=== PATIENT | female | born 1955 | race Caucasian/White ===

== ENCOUNTER → 2019-05-05 20:15 | Outpatient (CLI) | payer MEDICARE, SELFPAY ==
[2019-04-18 13:56] VITALS: BMI 32.3
== END ==
PROVIDERS: Family Provider Internal Medicine; PCP Internal Medicine; Referring Provider Internal Medicine Cardiovascular Disease; Visit Provider Internal Medicine Cardiovascular Disease
DX: G47.10 Hypersomnia, unspecified (principal); R06.83 Snoring; I10 Essential (primary) hypertension
CPT/HCPCS: 95810

== ENCOUNTER → 2019-05-23 12:58 | Outpatient (CLI) | payer MEDICARE, SELFPAY ==
[2019-04-18 13:56] VITALS: BMI 32.3
[2019-05-18 08:08] VITALS: BMI 32.3
--- NOTE | 2019-05-23 12:59 | CDU_ITS ---
Reason For Study: bruit Rt. Velocities/BP Lt. Velocities/BP Prox CCA 89.1/10.8 cm/sec. Prox CCA 90.0/13.9 cm/sec. Mid CCA 78.6/8.2 cm/sec. Mid CCA 67.9/13.9 cm/sec. Dist CCA 76.0/13.4 cm/sec. Dist CCA 94.9/16.3 cm/sec. Prox ICA 152.1/31.4 cm/sec. Prox ICA 134.5/27.0 cm/sec. Mid ICA 117.8/18.6 cm/sec. Mid ICA 132.3/20.4 cm/sec. Dist ICA 85.2/20.0 cm/sec. Dist ICA 125.7/20.4 cm/sec. Rt. ICA/CCA = 1.9. Lt. ICA/CCA = 2.0. Prox ECA 87.8/5.6 cm/sec. Prox ECA 174.3/6.0 cm/sec. Rt. Vert. 27.7/7.8 cm/sec. Lt. Vert. 103.8/18.2 cm/sec. Right Extracranial There is intimal thickening but no significant atherosclerotic plaque noted in the right common carotid artery. There is heterogeneous, irregular atherosclerotic plaque noted in the right internal carotid artery. There is intimal thickening but no significant atherosclerotic plaque noted in the right external carotid artery. Antegrade flow is noted in the right vertebral artery. Left Extracranial There is intimal thickening but no significant atherosclerotic plaque noted in the left common carotid artery. There is heterogeneous, irregular atherosclerotic plaque noted in the left internal carotid artery. There is homogeneous, smooth atherosclerotic plaque noted in the left external carotid artery. Antegrade flow is noted in the left vertebral artery. Procedure Carotid Duplex [id number]. The exam was diagnostic. Exam performed in department. Interpretation Summary Moderate (50-69%) stenosis right extracranial internal carotid. Moderate (50-69%) stenosis left extracranial internal carotid. Flow within the vertebral arteries is antegrade bilaterally. Ordering Physician: Delvin Bernard Performed By: Salvador Hahn RVT
--- NOTE | 2019-05-23 13:00 | ECHOD_ITS ---
Reason For Study: ABN EKG Procedure This was a 2D Doppler, Color Flow transthoracic echocardiogram. Exam performed in department. Left Ventricle Mild eccentric left ventricular hypertrophy. The estimated ejection fraction is 75 %. Stage 1 diastolic dysfunction. No regional wall motion abnormalities noted. Right Ventricle Normal size and thickness. Normal systolic function. Atria Normal left atrium. Normal right atrium. Normal atrial septum. Mitral Valve The mitral valve is structurally normal. No prolapse or stenosis seen. Tricuspid Valve Normal tricuspid valve. Trivial tricuspid valve insufficiency. Right ventricular systolic pressure estimated to be 34 mmHg. Aortic Valve Trisinus/trileaflet aortic valve. Normal aortic valve. Pulmonic Valve Normal pulmonic valve. Great Vessels Normal aortic root. Normal arch. Normal inferior vena cava. Inferior vena cava collapse with sniff. Pericardium/Pleural No pericardial effusion. MMode/2D Measurements & Calculations LVIDd: 3.8 cm IVSd: 1.3 cm LVOT diam: 1.9 cm LVIDs: 2.4 cm LVPWd: 0.75 cm LVOT area: 2.8 cm2 RVDd: 2.8 cm FS: 38.5 % Ao root diam: 2.5 cm LAV(MOD-bp): 42.5 ml LA A4 area: 15.6 cm2 LAV(MOD-bp) Indexed: 23.4 ml/m2 LAV(MOD-sp2): 48.7 ml LAV(MOD-sp4): 38.3 ml LA dimension(2D): 3.4 cm RA A4 area: 11.6 cm2 Time Measurements MV dec time: 0.34 sec Doppler Measurements & Calculations MV E max pb: 85.3 cm/sec Lat Peak E' Pb: 7.2 cm/sec Med Peak E' Pb: 5.7 cm/sec MV A max pb: 99.3 cm/sec E/E' lat: 11.9 E/E' med: 14.9 MV E/A: 0.86 Ao V2 max: 151.2 cm/sec LV V1 max: 107.5 cm/sec PA V2 max: 111.3 cm/sec Ao max P.2 mmHg LV V1 max P.6 mmHg AMAN(V,D): 2.0 cm2 TR max pb: 256.1 cm/sec TR max P.3 mmHg Interpretation Summary Mild eccentric left ventricular hypertrophy. The estimated ejection fraction is 75 %. Stage 1 diastolic dysfunction. Trivial tricuspid valve insufficiency. Right ventricular systolic pressure estimated to be 34 mmHg. Unable to elicit any dynamic LV gradient with Valsalva. There is no comparison study available. Ordering Physician: Marco Antonio^Delvin^^^ Referring Physician: Abigail Montoya Performed By: Nancy Lawson, MELINDA, RVT
== END ==
PROVIDERS: Family Provider Internal Medicine; PCP Internal Medicine; Referring Provider Internal Medicine Cardiovascular Disease; Visit Provider Internal Medicine Cardiovascular Disease
DX: Q24.8 Other specified congenital malformations of heart (principal); I77.9 Disorder of arteries and arterioles, unspecified; I73.9 Peripheral vascular disease, unspecified; I10 Essential (primary) hypertension; E78.5 Hyperlipidemia, unspecified; E11.9 Type 2 diabetes mellitus without complications; R09.89 Other specified symptoms and signs involving the circulatory and respiratory systems; R94.31 Abnormal electrocardiogram [ECG] [EKG]
CPT/HCPCS: 93306; 93880

== ENCOUNTER → 2019-06-02 09:02 | Outpatient (CLI) | payer MEDICARE, SELFPAY ==
[2019-05-18 08:08] VITALS: BMI 32.3
[2019-06-02 09:51] LABS: AST(SGOT) 35 U/L (15-37); Alanine Aminotransfer ALT/SGPT 53 U/L (13-56); Albumin, Serum 3.7 g/dL (3.2-5.0); Alkaline Phosphatase 172 U/L (45-117); Bilirubin, Direct 0.13 mg/dL (0.00-0.30); Cholesterol 196 mg/dL (200); Globulin 3.8 g/dL (2.2-4.2); High Density Lipoprotein 36 mg/dL; Protein, Total 7.5 g/dL (6.4-8.2); Triglycerides 132 mg/dL
[2019-06-02 09:52] LABS: Very Low Density Lipoprotein 26 mg/dL (5-40)
== END ==
PROVIDERS: Family Provider Internal Medicine; PCP Internal Medicine; Referring Provider Internal Medicine Cardiovascular Disease; Visit Provider Internal Medicine Cardiovascular Disease
DX: E78.5 Hyperlipidemia, unspecified (principal)
CPT/HCPCS: 36415; 80061; 80076

== ENCOUNTER → 2019-06-14 12:55 | Outpatient (CLI) | payer MEDICARE, SELFPAY ==
[2019-04-18 13:56] VITALS: BMI 32.3
[2019-05-18 08:08] VITALS: BMI 32.3
--- NOTE | 2019-06-14 14:57 | PFTCOMP_ITS ---
COMPLETE PULMONARY FUNCTION TEST INTERPRETATION Brief HPI: Patient is a 63 year old female, currently under the care of Dr. Bernard, who presents to [facility] for complete pulmonary function tests secondary to diagnosis of COPD. Respiratory therapist reports good effort and reproducible results. Interpretation: Forced expiration spirometry shows a moderate large airways obstructive ventilatory defect with an FEV1 of 73% predicted. There is no significant bronchodilator response by strict ATS criteria. Spirograms are of good quality and plateau slowly, indicating slowly emptying areas of the lungs. The respiratory flow volume loop shows decreased expiratory flow rates at all lung volumes consistent with airway obstruction. Lung volumes by body plethysmography show a normal total lung capacity at 3.89 L, 91% predicted. All other lung volumes are within normal limits. Diffusion capacity by carbon monoxide is decreased at 65% predicted. The airway resistance is elevated. No previous pulmonary function tests were available for review. Impression: Irreversible moderate large airways obstructive ventilatory defect with symmetric reduction in diffusing capacity.
== END ==
PROVIDERS: Family Provider Internal Medicine; PCP Internal Medicine; Referring Provider Internal Medicine Cardiovascular Disease; Visit Provider Internal Medicine Cardiovascular Disease
DX: R94.31 Abnormal electrocardiogram [ECG] [EKG] (principal); Q24.8 Other specified congenital malformations of heart; I73.9 Peripheral vascular disease, unspecified; I77.9 Disorder of arteries and arterioles, unspecified; I10 Essential (primary) hypertension; E78.5 Hyperlipidemia, unspecified; E11.9 Type 2 diabetes mellitus without complications; J44.9 Chronic obstructive pulmonary disease, unspecified; R06.09 Other forms of dyspnea; Z87.891 Personal history of nicotine dependence
CPT/HCPCS: 94060; 94726; 94729

== ENCOUNTER → 2019-06-29 09:16 | Outpatient (CLI) | payer MEDICARE, SELFPAY ==
[2019-04-18 13:56] VITALS: BMI 32.3
[2019-05-18 08:08] VITALS: BMI 32.3
--- NOTE | 2019-06-29 09:19 | STEWCON_ITS ---
Reason For Study: dyspnea, chest pain Stress Results Protocol: ZACH Maximum Predicted HR: 156 bpm Target HR: 133 bpm % Maximum Predicted HR: 85 % DurationHeart Rate Stage (mm:ss) (bpm) BP Dose Comment baseline 63 168/841.00 Stage one 3:00 95 168/70 mild dyspnea, mild martine leg pain Stage two 3:00 121 180/82 increased dyspnea and leg pain, mild chest burning Stage Three 0:30 133 / 1.00 Recovery 70 162/70 Stress Duration: 6:30 mm:ss Maximum Stress HR: 133 bpm Baseline Echocardiogram Findings The estimated ejection fraction is 65 %. Stress Echo Wall motion Data Resting WM Intermediate WM Stress WM Resting Wall Motion Wall Motion Stress No regional wall motion No regional wall motion abnormalities noted. abnormalities noted. EKG Data The baseline ECG displays normal sinus rhythm. The patient exercised according to the regular Zach protocol for a total duration of 8:50. The maximum heart rate attained was 133 beats per minute. This was 85% of maximum predicted heart rate. The patient exercised into stage 3 of the Zach protocol. During stress, there were no ST or T wave changes noted to suggest ischemia. No clinical angina was noted. No arrhythmias noted. Interpretation Summary The estimated ejection fraction is 65 %. Normal, adequate, treadmill echocardiogram. Negative for ischemia by EKG and echocardiographic criteria. Average exercise capacity for age. Appropriate blood pressure response for exercise. Test terminated due to the attainment of target heart rate. Final LVEF of 75%. Decreased sensitivity due to poor echo windows requiring Definity agent. Patient tolerated procedure well. No complications. The study was technically difficult. Contrast injection was performed. Ordering Physician: Delvin Bernard Referring Physician: Delvin Bernard Performed By: Nancy Lawson, SILVERIOCS, RVT
== END ==
PROVIDERS: Family Provider Internal Medicine; PCP Internal Medicine; Referring Provider Internal Medicine Cardiovascular Disease; Visit Provider Internal Medicine Cardiovascular Disease
DX: Q24.8 Other specified congenital malformations of heart (principal); R94.31 Abnormal electrocardiogram [ECG] [EKG]; I77.9 Disorder of arteries and arterioles, unspecified; J44.9 Chronic obstructive pulmonary disease, unspecified; I10 Essential (primary) hypertension; E11.9 Type 2 diabetes mellitus without complications; E78.5 Hyperlipidemia, unspecified
CPT/HCPCS: 93017; 93350; Q9957; A4216; C8928

== ENCOUNTER → 2019-09-19 13:00 | Outpatient (CLI) | payer MEDICARE, SELFPAY ==
[2019-08-24 06:53] VITALS: BMI 32.5
== END ==
PROVIDERS: Family Provider Internal Medicine; PCP Internal Medicine; Referring Provider Internal Medicine Critical Care Medicine; Visit Provider Internal Medicine Critical Care Medicine
DX: Z46.89 Encounter for fitting and adjustment of other specified devices (principal)
CPT/HCPCS: 98960; G0463

== ENCOUNTER → 2019-10-23 10:41 | Outpatient (CLI) | payer MEDICARE, SELFPAY ==
[2019-08-24 06:53] VITALS: BMI 32.5
[2019-10-23 11:45] LABS: AST(SGOT) 60 U/L (15-37); Alanine Aminotransfer ALT/SGPT 72 U/L (13-56); Albumin, Serum 3.4 g/dL (3.2-5.0); Alkaline Phosphatase 176 U/L (45-117); Bilirubin, Direct 0.11 mg/dL (0.00-0.30); Cholesterol 192 mg/dL (200); Globulin 4.3 g/dL (2.2-4.2); High Density Lipoprotein 30 mg/dL; Protein, Total 7.7 g/dL (6.4-8.2); Triglycerides 160 mg/dL; Very Low Density Lipoprotein 32 mg/dL (5-40)
== END ==
PROVIDERS: PCP Internal Medicine; Referring Provider Internal Medicine Cardiovascular Disease; Visit Provider Internal Medicine Cardiovascular Disease
DX: E78.00 Pure hypercholesterolemia, unspecified (principal); E78.5 Hyperlipidemia, unspecified
CPT/HCPCS: 36415; 80061; 80076

== ENCOUNTER → 2020-02-27 15:52 | Outpatient (CLI) | payer MEDICARE, SELFPAY ==
[2020-02-27 15:06] VITALS: BMI 33.6
== END ==
PROVIDERS: PCP Internal Medicine; Referring Provider Internal Medicine Endocrinology, Diabetes & Metabolism; Visit Provider Internal Medicine Endocrinology, Diabetes & Metabolism
DX: R30.0 Dysuria (principal)
CPT/HCPCS: 87086; 87088

== ENCOUNTER → 2020-05-09 13:13 | Outpatient (CLI) | payer MEDICARE, SELFPAY ==
[2020-02-07 09:53] VITALS: BMI 33.5
[2020-04-15 11:30] VITALS: BMI 33.8
[2020-05-09 13:00] VITALS: PULSE 59; PULSE 60; PULSE 68; PULSE 71; PULSE 72; PULSE 73; PULSE 74; O2SAT 96; O2SAT 97; O2SAT 98
--- NOTE | 2020-05-10 10:09 | PCM.PSN.6M ---
PSN 6 Minute Walk Test - 6 Minute Walk Test 6 Minute Walk Test: 6 Minute Walk Test PSN:6-Minute Walk Test Start: 05/09/20 13:43 Freq: Status: Active Protocol: RESP.6MINW Document 05/09/20 13:00 (Rec: 05/09/20 13:46 [id number]) 6 Minute Walk Test Date Performed 05/09/20 Time Performed 13:00 Height 5 ft 1 in Weight: 180 lb Weight in Pounds 180.[address]: Zaida Herrera [facility] FIO2 (% Oxygen) 21 Assistive device used: None Pre-test Oxygen Delivery Method Room Air Pulse Ox (%) 98 Pulse Rate (60-100 beats/min) 59 L Dyspnea Mendez Scale (0-10) 0 Exertion Mendez Scale (6-20) 6 1st minute Oxygen Delivery Method Room Air Pulse Ox (%) 97 Pulse Rate (60-100 beats/min) 68 2nd minute Oxygen Delivery Method Room Air Pulse Ox (%) 96 Pulse Rate (60-100 beats/min) 74 3rd minute Oxygen Delivery Method Room Air Pulse Ox (%) 97 Pulse Rate (60-100 beats/min) 72 4th minute Oxygen Delivery Method Room Air Pulse Ox (%) 97 Pulse Rate (60-100 beats/min) 73 5th minute Oxygen Delivery Method Room Air Pulse Ox (%) 97 Pulse Rate (60-100 beats/min) 71 6th minute Oxygen Delivery Method Room Air Pulse Ox (%) 97 Pulse Rate (60-100 beats/min) 73 Post-test Oxygen Delivery Method Room Air Pulse Ox (%) 98 Pulse Rate (60-100 beats/min) 60 Dyspnea Mendez Scale (0-10) 3 Exertion Mendez Scale (6-20) 13 Full Laps Walked 16 Partial Lap, Number of Tiles Walked 0 Total Distance Walked (ft) 944 - Interpretation Interpretation: The patient ambulated 944 feet over the course of 6 minutes beginning on room air without assistive devices or breaks. Pretesting oxygen saturation was noted to be 98% on room air. With ambulation, the alexys oxygen saturation was noted to be 96% with exertion. There was no significant exertional oxygen desaturation. - Recommendations Recommendations: There is no indication for the use of supplemental oxygen at this time.
== END ==
PROVIDERS: PCP Internal Medicine; Referring Provider Nurse Practitioner Acute Care; Visit Provider Nurse Practitioner Acute Care
DX: J44.9 Chronic obstructive pulmonary disease, unspecified (principal)
CPT/HCPCS: 94618

== ENCOUNTER → 2020-07-02 12:48 | Outpatient (CLI) | payer MEDICARE, SELFPAY ==
[2020-05-29 13:24] VITALS: BMI 34.4
--- NOTE | 2020-07-02 12:50 | CDU_ITS ---
Reason For Study: Carotid stenosis Rt. Velocities/BP Lt. Velocities/BP Prox CCA 87.8/9.5 cm/sec. Prox CCA 90.4/11.3 cm/sec. Mid CCA 98.2/12.1 cm/sec. Mid CCA 87.1/13.5 cm/sec. Dist CCA 72.1/13.4 cm/sec. Dist CCA 95.9/19 cm/sec. Prox ICA 146.7/22.5 cm/sec. Prox ICA 132.9/21.5 cm/sec. Mid ICA 117.4/13.3 cm/sec. Mid ICA 141.1/22.6 cm/sec. Dist ICA 121.1/17 cm/sec. Dist ICA 125.7/22.6 cm/sec. Rt. ICA/CCA = 1.7. Lt. ICA/CCA = 1.6. Prox ECA 161.3/11.5 cm/sec. Prox ECA 166.6/8.5 cm/sec. Rt. Vert. 20.6/4.4 cm/sec. Lt. Vert. 106/16 cm/sec. Right Extracranial There is homogeneous, smooth atherosclerotic plaque noted in the right common carotid artery. There is heterogeneous, irregular atherosclerotic plaque noted in the right internal carotid artery. There is intimal thickening but no significant atherosclerotic plaque noted in the right external carotid artery. Antegrade flow is noted in the right vertebral artery. Left Extracranial There is homogeneous, smooth atherosclerotic plaque noted in the left common carotid artery. There is heterogeneous, irregular atherosclerotic plaque noted in the left internal carotid artery. There is homogeneous, smooth atherosclerotic plaque noted in the left external carotid artery. Antegrade flow is noted in the left vertebral artery. Procedure Carotid Duplex [id number]. This is a Carotid Duplex examination using B-mode, color flow and specral Doppler. Exam performed in department. Interpretation Summary Moderate (50-69%) stenosis right extracranial internal carotid. Moderate (50-69%) stenosis left extracranial internal carotid. Flow within the vertebral arteries is antegrade bilaterally. Ordering Physician: Jethro Goss Referring Physician: Abigail Montoya Performed By: Heather Aviles RVT
== END ==
PROVIDERS: PCP Internal Medicine; Referring Provider Surgery Vascular Surgery; Visit Provider Surgery Vascular Surgery
DX: I65.23 Occlusion and stenosis of bilateral carotid arteries (principal)
CPT/HCPCS: 93880

== ENCOUNTER → 2020-08-30 12:00 | Outpatient (CLI) | payer MEDICARE, SELFPAY ==
[2020-05-29 13:24] VITALS: BMI 34.4
--- NOTE | 2020-08-30 12:02 | US_ITS ---
STUDY: THYROID ULTRASOUND REASON FOR EXAM: Female, 65 years old. GOITER TECHNIQUE: Ultrasound evaluation of the thyroid was performed with real-time and static torres-scale imaging. COMPARISON: None. FINDINGS: RIGHT LOBE: The right lobe of the thyroid gland measures 4.8 x 1.4 x 1.4 cm. There is a homogeneous echotexture. There is a 7 x 7 x 5 mm isoechoic nodule and a 6 x 7 x 5 mm hypoechoic nodule with regular margins and perinodular vascularization. Posteriorly there is a lymph node measuring 9 x 8 x 7 mm with a normal echogenic hilum. LEFT LOBE: The left lobe of the thyroid gland measures 4.7 x 1.6 x 1.7 cm. There is a homogeneous echotexture. There are no demonstrated solid, cystic or complex lesions. ISTHMUS: The isthmus measures 4 mm . The regional lymph nodes are normal. US/Thyroid IMPRESSION: Enlarged thyroid consistent with goiter. 2 small nodules on the right as above. Electronically Signed: Dereje Gage MD at 23:09 EST , Service support ,
== END ==
PROVIDERS: PCP Internal Medicine; Referring Provider Internal Medicine Endocrinology, Diabetes & Metabolism; Visit Provider Internal Medicine Endocrinology, Diabetes & Metabolism
DX: E04.9 Nontoxic goiter, unspecified (principal)
CPT/HCPCS: 76536

== ENCOUNTER → 2020-11-26 13:29 | Outpatient (CLI) | payer MEDICARE, SELFPAY ==
[2020-11-26 13:03] VITALS: BMI 33.5
[2020-11-26 15:30] LABS: Vitamin D,25 Hydroxy 74.8 ng/mL
== END ==
PROVIDERS: PCP Internal Medicine; Referring Provider Internal Medicine Endocrinology, Diabetes & Metabolism; Visit Provider Internal Medicine Endocrinology, Diabetes & Metabolism
DX: E55.9 Vitamin D deficiency, unspecified (principal)
CPT/HCPCS: 36415; 82306

== ENCOUNTER → 2021-02-18 09:47 | Outpatient (CLI) | payer MEDICARE, SELFPAY ==
[2021-02-12 13:03] VITALS: BMI 33.2
[2021-02-18 11:29] LABS: AST(SGOT) 41 U/L (15-37); Alanine Aminotransfer ALT/SGPT 55 U/L (13-56); Albumin, Serum 3.4 g/dL (3.2-5.0); Alkaline Phosphatase 212 U/L (45-117); Bilirubin, Direct 0.11 mg/dL (0.00-0.30); Cholesterol 202 mg/dL (200); High Density Lipoprotein 33 mg/dL; Protein, Total 7.4 g/dL (6.4-8.2); Triglycerides 160 mg/dL; Very Low Density Lipoprotein 32 mg/dL (5-40)
== END ==
PROVIDERS: PCP Internal Medicine; Referring Provider Internal Medicine Cardiovascular Disease; Visit Provider Internal Medicine Cardiovascular Disease
DX: E78.00 Pure hypercholesterolemia, unspecified (principal)
CPT/HCPCS: 36415; 80061; 80076

== ENCOUNTER → 2022-04-14 | Outpatient (CLI) | payer MEDICARE, SELFPAY ==
--- NOTE | 2022-04-14 07:10 | CDU_ITS ---
Reason For Study: INTERMITTENT CP RADIATING TO NECK Rt. Velocities/BP Lt. Velocities/BP Prox CCA 102.5/8.6 cm/sec. Prox CCA 82.2/12.8 cm/sec. Mid CCA 94.7/8.4 cm/sec. Mid CCA 83.1/12.4 cm/sec. Dist CCA 69.9/9.9 cm/sec. Dist CCA 97.0/9.6 cm/sec. Prox ICA 174.7/21.1 cm/sec. Prox ICA 144.6/15.1 cm/sec. Mid ICA 127.7/16.3 cm/sec. Mid ICA 109.4/15.1 cm/sec. Dist ICA 91.1/16.3 cm/sec. Dist ICA 98.4/12.6 cm/sec. Rt. ICA/CCA = 174.7/94.7=1.8. Lt. ICA/CCA = 144.6/97.0=1.5. Prox ECA 116.8/8.6 cm/sec. Prox ECA 118.3/0.0 cm/sec. Rt. Vert. 58.4/0.0 cm/sec. Lt. Vert. 72.4/12.0 cm/sec. Right Extracranial There is homogeneous, smooth atherosclerotic plaque noted in the right common carotid artery. There is homogeneous, irregular atherosclerotic plaque noted in the right internal carotid artery. There is intimal thickening but no significant atherosclerotic plaque noted in the right external carotid artery. Antegrade flow is noted in the right vertebral artery. Left Extracranial There is homogeneous, smooth atherosclerotic plaque noted in the left common carotid artery. There is heterogeneous, irregular atherosclerotic plaque noted in the left internal carotid artery. There is homogeneous, smooth atherosclerotic plaque noted in the left external carotid artery. Antegrade flow is noted in the left vertebral artery. Procedure Carotid Duplex [id number]. The exam was diagnostic. Exam performed in department. VL/Carotid Duplex Ultrasound Interpretation Summary Moderate (50-69%) stenosis right extracranial internal carotid. Moderate (50-69 %) stenosis left extracranial internal carotid. Flow within the vertebral arteries is antegrade bilaterally. Ordering Physician: Carlos Wilson Referring Physician: Abigail Montoya Performed By: Nancy Lawson, MELINDA, RVT
== END | disposition home or self-care (01) ==
PROVIDERS: PCP Internal Medicine; Referring Provider Internal Medicine Cardiovascular Disease; Visit Provider Internal Medicine Cardiovascular Disease
DX: I65.23 Occlusion and stenosis of bilateral carotid arteries (principal); J44.9 Chronic obstructive pulmonary disease, unspecified; I73.9 Peripheral vascular disease, unspecified; I10 Essential (primary) hypertension; E78.2 Mixed hyperlipidemia
CPT/HCPCS: 93880

== ENCOUNTER → 2023-05-05 | Outpatient (CLI) | payer MEDICARE, SELFPAY ==
--- NOTE | 2023-05-05 09:57 | CDU_ITS ---
Reason For Study: Carotid Stenosis Rt. Velocities/BP Lt. Velocities/BP Prox CCA 80.6/8.1 cm/sec. Prox CCA 70.2/9.7 cm/sec. Mid CCA 83.0/10.6 cm/sec. Mid CCA 69.2/11.6 cm/sec. Dist CCA 70.7/10.6 cm/sec. Dist CCA 70.2/13.5 cm/sec. Prox ICA 157.2/21.1 cm/sec. Prox ICA 128.4/18.8 cm/sec. Mid ICA 118.0/10.2 cm/sec. Mid ICA 135.7/18.8 cm/sec. Dist ICA 77.8/15.7 cm/sec. Dist ICA 95.1/18.2 cm/sec. Rt. ICA/CCA = 1.9. Lt. ICA/CCA = 2.0. Prox ECA 74.3/6.2 cm/sec. Prox ECA 211.4/9.4 cm/sec. Rt. Vert. 18.5/6.2 cm/sec. Lt. Vert. 65.2/13.5 cm/sec. Right Extracranial There is homogeneous, smooth atherosclerotic plaque noted in the right common carotid artery. There is heterogeneous, irregular atherosclerotic plaque noted in the right internal carotid artery. There is intimal thickening but no significant atherosclerotic plaque noted in the right external carotid artery. Antegrade flow is noted in the right vertebral artery. Left Extracranial There is homogeneous, smooth atherosclerotic plaque noted in the left common carotid artery. There is heterogeneous, irregular atherosclerotic plaque noted in the left internal carotid artery. There is heterogeneous, irregular atherosclerotic plaque noted in the left external carotid artery. Antegrade flow is noted in the left vertebral artery. Procedure Carotid Duplex [id number]. This is a Carotid Duplex examination using B-mode, color flow and specral Doppler. The exam was diagnostic. Exam performed in department. VL/Carotid Duplex Ultrasound Interpretation Summary Mild (<50%) stenosis right extracranial internal carotid. Mild (<50%) stenosis left extracranial internal carotid. Flow within the vertebral arteries is antegrade bilaterally. Ordering Physician: Jethro Goss Referring Physician: Abigail Montoya Performed By: Mac Ernst RVT
== END | disposition home or self-care (01) ==
LOC: CVS 09:50
PROVIDERS: PCP Internal Medicine; Referring Provider Surgery Vascular Surgery; Visit Provider Surgery Vascular Surgery
DX: I65.23 Occlusion and stenosis of bilateral carotid arteries (principal)
CPT/HCPCS: 93880

== ENCOUNTER → 2023-06-15 | Outpatient (CLI) | payer MEDICARE, SELFPAY ==
--- NOTE | 2023-06-15 12:46 | ECHOD_ITS ---
Reason For Study: OTHER SPECIFIED CONGENITAL MALFORMATION OF HEART, HTN Procedure This was a 2D Doppler, Color Flow transthoracic echocardiogram. Exam performed in department. Left Ventricle Normal LV size. Left ventricular systolic function is normal. The estimated ejection fraction is 55 %. Stage 1 diastolic dysfunction. No regional wall motion abnormalities noted. Right Ventricle Normal RV size. Normal systolic function. Atria Normal left atrium. Normal right atrium. Mitral Valve Normal mitral valve. Tricuspid Valve Normal tricuspid valve. Mild tricuspid valve insufficiency. Pulmonary artery systolic pressure is 28 mmHg. Aortic Valve Normal aortic valve. Pulmonic Valve Normal pulmonic valve. Great Vessels Normal aortic root. The pulmonary artery is normal size. Normal inferior vena cava. Pericardium/Pleural No pericardial effusion. MMode/2D Measurements & Calculations LVIDd: 3.8 cm IVSd: 1.4 cm Ao root diam: 2.7 cm LVIDs: 2.8 cm LVPWd: 0.94 cm RVDd: 3.2 cm FS: 24.6 % LAV(MOD-bp): 31.8 ml LVAd ap4: 23.6 cm2 LVAd ap2: 16.5 cm2 LAV(MOD-bp) Indexed: 17.6 ml/m2 LVLd ap4: 7.7 cm LVLd ap2: 5.9 cm LAV(MOD-sp2): 31.4 ml EDV(MOD-sp4): 59.9 ml EDV(MOD-sp2): 39.3 ml LAV(MOD-sp4): 28.5 ml EDV(sp4-el): 61.3 ml EDV(sp2-el): 39.3 ml LVAs ap4: 11.7 cm2 LVAs ap2: 8.4 cm2 LVLs ap4: 6.0 cm LVLs ap2: 5.1 cm ESV(MOD-sp4): 20.8 ml ESV(MOD-sp2): 11.8 ml ESV(sp4-el): 19.4 ml ESV(sp2-el): 11.9 ml EF(MOD-sp4): 65.3 % EF(MOD-sp2): 69.9 % EF(sp4-el): 68.3 % SV(MOD-sp4): 39.1 ml SV(MOD-sp2): 27.5 ml SV(sp4-el): 41.9 ml LA dimension(2D): 3.7 cm LA A4 area: 12.5 cm2 RA A4 area: 10.2 cm2 TAPSE: 2.2 cm Time Measurements MV dec time: 0.26 sec Doppler Measurements & Calculations MV E max pb: 76.3 cm/sec Lat Peak E' Pb: 7.4 cm/sec Med Peak E' Pb: 6.8 cm/sec MV A max pb: 92.0 cm/sec E/E' lat: 10.3 E/E' med: 11.2 MV E/A: 0.83 MV V2 max: 101.0 cm/sec MV P1/2t max pb: 103.0 cm/sec Ao V2 max: 138.8 cm/sec MV max P.1 mmHg MV P1/2t: 99.2 msec Ao max P.7 mmHg MV V2 mean: 42.8 cm/sec MV dec slope: 304.3 cm/sec2 Ao V2 mean: 87.3 cm/sec MV mean P.0 mmHg Ao mean P.7 mmHg MV V2 VTI: 37.0 cm MVA(P1/2t): 2.2 cm2 Ao V2 VTI: 35.2 cm AV (velocity ratio): 1.0 LV V1 max: 126.9 cm/sec PA V2 max: 84.9 cm/sec TR max pb: 244.0 cm/sec LV V1 max P.4 mmHg PA V2 mean: 58.5 cm/sec TR max P.8 mmHg LV V1 mean P.8 mmHg LV V1 mean: 92.3 cm/sec LV V1 VTI: 35.7 cm ECHO/Echo Complete Interpretation Summary Normal LV size. Left ventricular systolic function is normal. The estimated ejection fraction is 55 %. Normal right atrium. Stage 1 diastolic dysfunction. Ordering Physician: Nathan Boyd Referring Physician: Abigail Montoya Performed By: Nancy Lawson, RDCS, RVT
== END | disposition home or self-care (01) ==
LOC: CVS 12:46
PROVIDERS: PCP Internal Medicine; Referring Provider Internal Medicine Cardiovascular Disease; Visit Provider Internal Medicine Cardiovascular Disease
DX: Q24.8 Other specified congenital malformations of heart (principal)
CPT/HCPCS: 93306

== ENCOUNTER → 2024-08-18 | Outpatient (CLI) | payer MEDICARE, SELFPAY ==
[2024-08-18 14:03] LABS: Anion Gap 6 (5-15); BUN 20 mg/dL (7-18); BUN/Creat Ratio 23.4 RATIO (10-20); Calcium,Total 9.6 mg/dL (8.5-10.1); Chloride 105 mmol/L (98-107); Creatinine, Serum 0.85 mg/dL (0.55-1.02); EST Glomerular Filtration Rate 70 mL/min (>60); Est Glom Filt Rate - Afr Amer 85 mL/min (>60); Glucose 116 mg/dL (74-106); Potassium 4.1 mmol/L (3.5-5.1); Sodium Level 137 mmol/L (136-145)
== END | disposition home or self-care (01) ==
PROVIDERS: PCP Internal Medicine; Referring Provider Physician Assistant Medical; Visit Provider Physician Assistant Medical
DX: I10 Essential (primary) hypertension (principal); E11.65 Type 2 diabetes mellitus with hyperglycemia; R07.89 Other chest pain
CPT/HCPCS: 36415; 80048